=== PATIENT | female | born 1945 | race Caucasian/White ===

== ENCOUNTER → 2016-09-07 | Outpatient (CLI) | payer OTHER ==
--- NOTE | 2016-09-07 16:21 | US ---
Left Breast Ultrasound History: Nipple soreness Technique: I first performed a directed physical examination. This was followed by ultrasound exam with a high frequency linear transducer. Comparison: screening mammography June 18, 2016 (negative beneath the left nipple, even in retrosp ect) Findings: The skin of the left areola is thicker and nodular than the contralateral breast. On ultras ound the thickened skin is hypoechoic and hypervascular. There are no dilated ducts, , mass, sonograp hic architectural distortion or sonographically visible microcalcifications identified behind the lef t nipple. Impression: Abnormal nodular skin thickening of the left areola. Differential diagnosis includes skin lymphoma, mycosis fungoides and Paget's disease without imaging evidence for underlying breast cance r. Recommendation: Dermatology consultation to consider skin biopsy of the areola. Results and recommendation discussed with the patient in detail, who is in agreement with the plan. S he is leaving for [place] shortly and will seek a dermatology consultation there. BI-RADS 4. Suspicious
== END ==
LOC: FIMAGING 15:05
PROVIDERS: ATTEND Obstetrics & Gynecology Gynecology
DX: N64.4 Mastodynia (principal); R92.8 Other abnormal and inconclusive findings on diagnostic imaging of breast